=== PATIENT | female | born 1935 | race Caucasian/White ===

== ENCOUNTER 2019-12-29 08:33 | Day surgery (SDC) | payer OTHER, BC, SELFPAY ==
[~2019-12-29] VITALS: Ht 167.6 cm; Wt 71.2 kg
[~2019-12-29 08:33] MED LIST: CLINDAMYCIN PHOS 600 MG/ D5W 50 ML PREMIX IV ONE
[2019-12-29] MEDS ORDERED: fentaNYL CITRATE/PF 100 MCG/2 ML AMP IVP ONE (11:13)
[2019-12-29] MEDS ORDERED: LR 1,000 ML IV.SOLN IV ONE (11:13)
[2019-12-29] MEDS ORDERED: METOCLOPRAMIDE HCL 10 MG/2 ML VIAL IVP ONE (11:13)
[2019-12-29] MEDS ORDERED: MIDAZOLAM HCL 5 MG/5 ML VIAL IVP ONE (11:13)
[2019-12-29] MEDS ORDERED: ONDANSETRON HCL 4 MG/2 ML VIAL IVP ONE (11:13)
[2019-12-29] MEDS ORDERED: DEXAMETHASONE SOD PHOSPHATE 4 MG/ML VIAL IVP ONE (11:13)
[2019-12-29] MEDS ORDERED: NS IRRIG SOLN 1000 ML IR ONE (11:13)
[2019-12-29] MEDS ORDERED: BUPIVACAINE /PF 0.25% 30 ML VIAL INJ ONE (11:13)
[2019-12-29] MEDS ORDERED: SEVOFLURANE 15 MIN GAS INH ONE (11:13)
[2019-12-29] MEDS ORDERED: ISOFLURANE 15 MIN GAS INH ONE (11:13)
[2019-12-29] MEDS ORDERED: SUGAMMADEX SODIUM 200 MG/2 ML VIAL IV ONE (11:13)
[2019-12-29] MEDS ORDERED: ROCURONIUM BROMIDE 10 MG/ML (ZEMURON) IV ONE (11:13)
[2019-12-29] MEDS ORDERED: MIDAZOLAM HCL 2 MG/2 ML VIAL (VERSED) IVP PRN (12:00)
[2019-12-29] MEDS ORDERED: ONDANSETRON HCL 4 MG/2 ML VIAL IVP PRN (12:00)
[2019-12-29] MEDS ORDERED: hydrALAZINE HCL 20 MG/ML VIAL IVP PRN (12:00)
[2019-12-29] MEDS ORDERED: MEPERIDINE HCL/PF 25 MG/ML DISP.SYRIN IVP PRN (12:00)
[2019-12-29] MEDS ORDERED: METOCLOPRAMIDE HCL 10 MG/2 ML VIAL IVP PRN (12:00)
[2019-12-29] MEDS ORDERED: HYDROmorphone 1 MG INJ. 1 MG/ML AMPUL IVP PRN ×2 (12:00)
[2019-12-29] MEDS ORDERED: LR 1,000 ML IV SCH (12:00)
[2019-12-29] MEDS ORDERED: LABETALOL 100 MG/ 20ML VIAL IVP PRN (12:00)
[2019-12-29 13:30] VITALS: BP_SYST 166
[2019-12-29] MEDS ORDERED: HYDROcodone/ACETAMIN 5-325 MG TAB (NORCO/ VICODIN) PO PRN (14:00)
[2019-12-29] MEDS ORDERED: D5/0.45 NS 1,000 ML IV SCH (14:00)
== END 2019-12-29 14:45 | disposition home or self-care (01) ==
LOC: SDS 08:33 → SMU 08:33 → SDS 14:45
PROVIDERS: ATTEND Colon & Rectal Surgery
DX: N63.11 Unspecified lump in the right breast, upper outer quadrant (principal); K21.9 Gastro-esophageal reflux disease without esophagitis; I10 Essential (primary) hypertension; Z88.0 Allergy status to penicillin; E03.9 Hypothyroidism, unspecified; M16.12 Unilateral primary osteoarthritis, left hip; Z90.49 Acquired absence of other specified parts of digestive tract; Z90.710 Acquired absence of both cervix and uterus; Z90.89 Acquired absence of other organs; Z20.828 Contact with and (suspected) exposure to other viral communicable diseases
CPT/HCPCS: 19301; 88307; C9399; J1100; J2250; J2405; J2765; J3010; J3465; J3490 ×2; J7120; U0003

== ENCOUNTER 2020-02-16 15:00 | Outpatient (CLI) | payer OTHER, BC, SELFPAY ==
[~2020-02-16] VITALS: Ht 160 cm; Wt 75.7 kg
== END 2020-02-16 15:30 | disposition home or self-care (01) ==
LOC: SLB 15:00 → EDSTATUS 02-23 13:10
PROVIDERS: ATTEND Colon & Rectal Surgery
DX: Z01.812 Encounter for preprocedural laboratory examination (principal); Z20.828 Contact with and (suspected) exposure to other viral communicable diseases; K57.92 Diverticulitis of intestine, part unspecified, without perforation or abscess without bleeding
CPT/HCPCS: U0003